=== PATIENT | male | born 1970 | race Caucasian/White ===

== ENCOUNTER → 2020-09-21 14:56 | Outpatient (BNVA) | payer BC, SELFPAY | PROVIDERS: PCP Family Medicine; Referring Provider Family Medicine; Visit Provider Internal Medicine Cardiovascular Disease ==

== ENCOUNTER → 2020-10-28 09:38 | Outpatient (REF) | payer BC, SELFPAY ==
--- NOTE | 2020-10-28 09:41 | CA_ITS ---
Transthoracic Echocardiogram Patient (Last, First, Middle): Reece Kramer, Gender: Male Date of : 1970 Age: 50 Procedure Date: 10/28/2020 Procedure Type: Transthoracic Echocardiogram Location: OP Height: 185.42 cm Weight: 104.33 kg BSA: 2.28 m2 Heart Rate: bpm BP: 122 / 72 mmHg Locum Tenens: PERLA Referring MD: Deric Marrero MD Symptoms: I48.0 - Paroxysmal atrial fibrillation Study Quality: Good ECG Rhythm: Sinus Conclusions: - Normal left ventricular size, thickness, and systolic function. - Normal right ventricular cavity size and systolic function. - There is mild dilatation of the ascending aorta. Findings Left Ventricle Normal left ventricular size, thickness, and systolic function. The visually estimated ejection fraction is between 55-60%. There is no evidence of regional wall motion abnormalities. Diastolic function is normal for age. Right Ventricle Normal right ventricular cavity size and systolic function. Atria The left atrium is normal in size. Aortic Valve Normal aortic valve structure and function. There is no aortic valve stenosis. There is no aortic valve regurgitation. Mitral Valve Normal mitral valve structure and function. There is no mitral valve regurgitation. There is no mitral valve stenosis. Pulmonic Valve The pulmonic valve is likely normal. Tricuspid Valve Normal tricuspid valve structure and function. There is trace tricuspid valve regurgitation. Normal right atrial pressure. There is no evidence of pulmonary hypertension. Great Vessels There is mild dilatation of the ascending aorta. The visualized portions of the pulmonary artery and branches are normal. Venous The inferior vena cava is normal in size and collapses greater than 50% with inspiration. Pericardium/Pleural There is no evidence of pericardial effusion. Prior Study Comparison No prior study available for comparison. Measurements 2D Linear Measurements IVSd: 1.00 0.6-0.9/0.6-1.0 cm LVIDd: 4.96 3.9-5.3/4.2-5.9 cm LVIDd Index: 2.18 2.4-3.2/2.2-3.1 cm/m2 LVIDs: 3.51 2.0-3.6 cm LVPWd: 0.84 0.7-1.1 cm Ao Root: 3.70 2.1-3.5 cm LA Diam: 3.60 2.7-3.8/3.0-4.0 cm LAIDs Index: 1.58 1.5-2.3 cm/m2 LV Mass: 199.67 67-162/88-224 g LV Mass Index: 87.58 43-95/49-115 g/m2 LVOT Diam: 2.50 3.0+(-)1.3 cm 2D Systolic Function EF 4C: 55.80 >55% EF 2C: 50.70 >55% Mitral Valve MV Pk E: 0.67 MV PK A: 0.50 MV Decel Time: 309.00 E/A: 1.40 E'Lateral: 10.60 E'Medial: 9.57 E/E' Med: 7.00 E/E' Lat: 6.30 PHT: 90.00 MVA PHT: 2.44 Decel [place]: 2.18 Aortic Valve AoV Pk William: 1.09 AoV Mn William: 0.72 AoV VTI: 0.25 AoV Pk Grad: 5.00 Aov Mn Grad: 2.00 JENNIFER Cont.VTI: 3.55 LVOT LVOT Pk William: 0.88 LVOT Mn William: 0.56 LVOT VTI: 0.18 LVOT Pk Grad: 3.00 LVOT Mn Grad: 1.00 LVOT Diam: 2.50 LVOT Area: 4.91 Diastolic Function MV Pk E: 0.67 MV Pk A: 0.50 E/A: 1.40 E'Medial: 9.57 E/E' Med: 7.00 E' Laterial: 10.60 E/E' Lat: 6.30 Right Ventricle TAPSE (mm): 28.00 TVS' William: 13.80 Tricuspid Valve TR Pk William: 1.86 TR Pk Grad: 14.00 RA Press: 3.00 RVSP: 17.00 Great Vessels Aorta Ao Root-2D: 3.70 2.0-3.7 cm Ao Asc: 3.40 2.1-3.4 cm Pulmonary Valve PV Pk William: 1.24 Peak PV Grad: 6.00 Updated in Other Vendor System with Status of Final Juan Pablo Staley MD electronically signed on 10/29/2020 9:58:16 PM with status of Final
--- NOTE | 2020-10-28 09:41 | CA_ITS ---
Acquisition Time: 2020-10-28 10:30:21 Total Exercise Time: 00:11:41 Test Indications: AFIB Medications: Protocol: [place] Max HR: 144 BPM 85% of Pred: 169 BPM Max BP: 154/058 mmHG Max Work Load: 13.4 METS Exercise stress test with exercise 11 min 41 sec of [place] protocol, with request to stop due to knee pain, without anginal symptoms, with isolated PAC and rare PVC, with normotensive response to exercise, without EKG changes meeting criteria for ischemia. Test reviewed with Dr Marrero. Referred By: Deric Marrero Overread By: HENNA HOUSER
== END ==
LOC: HO.CARD 09:38
PROVIDERS: Visit Provider Internal Medicine Cardiovascular Disease
DX: I48.0 Paroxysmal atrial fibrillation (principal); R55 Syncope and collapse
CPT/HCPCS: 93017; 93306

== ENCOUNTER → 2020-10-31 12:51 | Outpatient (REF) | payer BC, SELFPAY | LOC: HO.SL 12:51 | PROVIDERS: PCP Family Medicine; Visit Provider Internal Medicine Cardiovascular Disease | DX: I48.0 Paroxysmal atrial fibrillation (principal); R55 Syncope and collapse | CPT/HCPCS: 95806 ==

== ENCOUNTER → 2020-11-29 10:55 | Outpatient (BNVA) | payer BC, SELFPAY | PROVIDERS: PCP Family Medicine; Referring Provider Family Medicine; Visit Provider Internal Medicine Cardiovascular Disease ==

== ENCOUNTER → 2020-12-19 15:40 | Outpatient (BNVA) | payer BC, SELFPAY | PROVIDERS: PCP Family Medicine; Visit Provider Internal Medicine ==

== ENCOUNTER → 2021-02-16 15:36 | Outpatient (BNVA) | payer BC, SELFPAY | PROVIDERS: PCP Family Medicine; Visit Provider Internal Medicine ==

== ENCOUNTER → 2021-11-20 15:18 | Outpatient (BNVA) | payer BC, SELFPAY | PROVIDERS: PCP Family Medicine; Referring Provider Family Medicine; Visit Provider Internal Medicine Cardiovascular Disease | DX: I48.0 Paroxysmal atrial fibrillation (principal); R55 Syncope and collapse | CPT/HCPCS: 93005 ==

== ENCOUNTER 2022-11-27 15:16 | Outpatient (REF) | payer BC, SELFPAY ==
[2022-11-27 17:27] LABS: Hematocrit 46.3 % (42.0-52.0); Hemoglobin 15.4 g/dl (14.0-18.0); Mean Corpuscular HGB Conc 33.3 g/dl (31.0-36.0); Mean Corpuscular Hemoglobin 29.4 pg (27.0-33.0); Mean Corpuscular Volume 88.5 fL (80.0-98.0); Mean Platelet Volume 11.4 fL (9.4-12.4); Platelet Count 244 X10*3/uL (160-400); Red Blood Count 5.23 X10*6/uL (4.60-5.80); Red Cell Distribution Width 13.1 % (11.0-16.0); White Blood Count 9.2 X10*3/uL (4.8-10.8)
[2022-11-27 18:25] LABS: B Type Natriuretic Peptide 56 pg/mL (<100)
[2022-11-27 18:26] LABS: Anion Gap 9 (12-20); Blood Urea Nitrogen 8 mg/dL (9-16); Calcium 9.3 mg/dL (8.4-10.2); Carbon Dioxide 27 mmol/L (22-29); Chloride 107 mmol/L (96-108); Estimated Glomerular Filt Rate > 60; Glucose Random 79 mg/dL (60-115); Magnesium 1.8 mg/dL (1.6-2.6); Sodium 139 mmol/L (135-145)
== END 2022-11-27 15:17 | disposition home or self-care (01) ==
LOC: HO.LAB 15:16
PROVIDERS: PCP Family Medicine; Visit Provider Internal Medicine Cardiovascular Disease
DX: I48.19 Other persistent atrial fibrillation (principal)
CPT/HCPCS: 36415; 80048; 83735; 83880; 85027; 93005

== ENCOUNTER 2022-11-27 15:16 | Outpatient (AMB) | payer BC, SELFPAY ==
--- NOTE | 2022-11-27 15:24 | MHC.OFFVIS ---
Intake Vital Signs 11/27/22 15:25 Height 6 ft 1 in Weight 218 lb 4.122 oz BMI 28.8 BP 120/72 Blood Pressure Location Lt brachial Position Sitting Pulse 107 H Intake Visit Reasons: 1 YR F/U Intake Note: 1 year follow-up with ekg feeling good Property Insurance Claims Examiner Required: No Allergies No Known Allergies [No Known Allergies*] Allergy (Verified 11/20/21 15:25) Medication List - Last Reconciled 11/27/22 by Deric Marrero MD No Known Home Meds HPI HPI Comments History of Present Illness Details Reece comes for annual follow-up. He is noted to be in atrial fibrillation today. He denies any symptoms related to it. Denies any changes exercise capacity. Does even know that his heart is in atrial fibrillation. He has been under a lot of stress and is sleeping poorly due to sudden passing of his and he is currently grieving. He is currently not on any medications. His symptoms of lightheadedness and syncope have completely dissipated since increasing his fluid intake. Denies any heart failure symptoms. He denies any excessive caffeine or alcohol use. [facility] Medical History MIKA (obstructive sleep apnea) Paroxysmal atrial fibrillation Surgical History Hx of hernia repair Family History Father No problems noted. Mother Afib Social History Patient Tobacco Use Status: Former Tobacco user Review of Systems Const Denies chills, Denies fatigue, Denies fever(s), Denies frequent falls, Denies weakness, Denies weight gain and Denies weight loss ENT Denies dizziness Card Denies chest pain, Denies leg edema, Denies lightheadedness, Denies palpitations, Denies dyspnea, Denies dyspnea on exertion, Denies orthopnea and Denies other (loss of consciousness) Resp Denies cough, Denies dyspnea and Denies dyspnea on exertion GI Denies hematochezia and Denies change in stool character Musc Denies abnormal gait, Denies muscle weakness, Denies numbness, Denies radiating pain into limb and Denies tingling Neuro Denies abnormal gait, Denies dizziness, Denies frequent falls, Denies numbness, Denies tingling and Denies weakness Endo Denies fatigue and Denies palpitations Physical Exam Vital Signs: Last Vital Signs Pulse 107 H 11/27/22 15:25 BP 120/72 11/27/22 15:25 BMI result Body Mass Index 28.8 Const General: cooperative, comfortable, no acute distress, alert, awake and Physically active Nutritional Appearance: overweight Orientation/consciousness: patient oriented x3 Limitations: no limitations HEENT Head: Yes normocephalic and Yes atraumatic Neck Neck: Yes trachea midline, Yes supple and Yes no JVD Resp Effort & Inspection: normal respiratory effort Auscultation: clear to auscultation bilaterally Cardio Jugular venous distension: no JVD Palpation: normal PMI Rate: tachycardic Rhythm: abnormal rhythm irregularly irregular Heart sounds: S1 normal heart sound present, S2 normal heart sound present, no click, no gallops, no murmurs and no rubs GI Auscultation: normal bowel sounds Skin General skin exam: no rashes or lesions noted Neuro General: patient oriented x3 and no focal motor deficits Extrem General: Yes no clubbing, cyanosis or edema Psych Appearance: grossly normal Office Procedures EKG Details: EKG shows atrial fibrillation with rapid ventricular response with rightward axis [id number], Complete Assessment & Plan Assessment & Plan (1) Persistent atrial fibrillation: Code(s): I48.19 - Other persistent atrial fibrillation Plan: Patient with recurrent atrial fibrillation without any obvious symptoms or signs of congestive heart failure. This is most likely induced by his recent highly stressful situation and lack of sleep. Importance of regular sleeping was noted. We discussed about management of atrial fibrillation given his age to pursue rhythm control approach in the long run. We discussed that not knowing how long he has been atrial fibrillation the most prudent approach would be to start oral anticoagulation therapy with Xarelto 20 mg daily and pursue synchronized cardioversion 4 weeks time. Other possibilities to pursue CAITLIN guided cardioversion sooner. He elected to pursue wait strategy. Will also start him on Toprol-XL 50 mg daily. Stress mitigation strategies pursued. We discussed about synchronized cardioversion including risk, benefits, alternatives. Understands agrees. Follow-up echocardiogram after cardioversion. Also discussed about pursuing monitoring with smart phone based EKG device. Will obtain lab work today. Will follow up in the clinic in 2 months time, sooner p.r.n.. Thank you for allowing me to partake in his care Orders: Orders Basic Metabolic Panel Today I48.19 - Other persistent atrial fibrillation Magnesium Today I48.19 - Other persistent atrial fibrillation Complete Blood Count no Diff Today I48.19 - Other persistent atrial fibrillation CA echo transthoracic complete 5 Weeks I48.19 - Other persistent atrial fibrillation B Type Natriuretic Peptide Today I48.19 - Other persistent atrial fibrillation Medications: New rivaroxaban (Xarelto) must administer with evening meal 20 mg PO DAILY 30 tabs 2RF metoprolol succinate ER (Toprol XL) 50 mg PO DAILY 30 tabs 2RF Coding Level of Care Code Est Pt Level 4 (42036) Diagnoses Persistent atrial fibrillation I48.19 CPT Codes EKG - CPT: 28408-Hvsmqvvlyglpogbdl, Complete ([id number])
[2022-11-27 15:25] VITALS: BP 120/72; PULSE 107; BMI 28.8
== END 2022-11-27 15:55 | disposition home or self-care (01) ==
PROVIDERS: PCP Family Medicine; Visit Provider Internal Medicine Cardiovascular Disease
DX: I48.19 Other persistent atrial fibrillation (principal)
CPT/HCPCS: 93010; 99214

== ENCOUNTER 2022-12-24 15:29 | Outpatient (AMB) | payer BC, SELFPAY ==
--- NOTE | 2022-12-24 15:58 | AM.OFFVISNUR ---
Intake Intake Visit Reasons: ekg Intake Note: Pt here for EKG. Has CVR scheduled this week but pulse has been normal at home lately per his siter in /[facility]. Financial Underwriter Required: No Accompanied by: Self / Same As Patient Allergies No Known Allergies [No Known Allergies*] Allergy (Verified 11/20/21 15:25) Followed by:: Dr. Marrero Nursing Note EKG completed - able to capture small run of paroxysmal afib and the rest was NSR 71 bpm. EKG to Per Dr. Marrero for review - continue Xarelto and Metoprolol, Cx CVR, order 3 day Holter. Rx refills sent to [facility]. Pt verbalizes understanding and agrees to plan. Karma to cancel CVR. Office Procedures EKG [id number], Complete Coding Level of Care Code Est Pt Level 1 (49857) CPT Codes EKG - CPT: 44450-Msxbicyhlhunttbok, Complete ([id number]) Time Spent (min) 20 Comment EKG, Medication Reconciliation, Documentation, Education
== END 2022-12-24 15:57 | disposition home or self-care (01) ==
PROVIDERS: PCP Family Medicine; Visit Provider Nurse Practitioner Family
DX: I48.0 Paroxysmal atrial fibrillation (principal)
CPT/HCPCS: 93010

== ENCOUNTER → 2022-12-24 15:29 | Outpatient (BNVA) | payer BC, SELFPAY | PROVIDERS: PCP Family Medicine; Visit Provider Nurse Practitioner Family | DX: I48.0 Paroxysmal atrial fibrillation (principal); Z79.01 Long term (current) use of anticoagulants; Z79.899 Other long term (current) drug therapy | CPT/HCPCS: 93005 ==

== ENCOUNTER → 2022-12-31 15:09 | Outpatient (REF) | payer BC, SELFPAY ==
--- NOTE | 2022-12-31 15:11 | CA_ITS ---
Transthoracic Echocardiogram Patient (Last, First, Middle): Reece Kramer, Gender: Male Date of : 1970 Age: 52 Procedure Date: 12/31/2022 Procedure Type: Transthoracic Echocardiogram Location: OP Height: 182.88 cm Weight: 99.79 kg BSA: 2.22 m2 Heart Rate: 56 bpm BP: 124 / 70 mmHg Research Psychologist: Referring MD: Deric Marrero MD Symptoms: I48.19 - Other persistent atrial fibrillation Study Quality: Adequate ECG Rhythm: Sinus Conclusions: - The left ventricular systolic function is low normal. The visually estimated ejection fraction is between 50-55%. - The basal inferior segment is hypokinetic. - Mildly increased right ventricular cavity size. - No obvious valvular pathology seen on this study. Findings Left Ventricle Normal left ventricular cavity size. There is normal left ventricular wall thickness. The left ventricular systolic function is low normal. The visually estimated ejection fraction is between 50-55%. There is evidence of regional wall motion abnormalities. Diastolic function is normal for age. Wall Motion Rest Echo Findings The basal inferior segment is hypokinetic. Right Ventricle Mildly increased right ventricular cavity size. There is normal right ventricular systolic function. Aortic Valve There is a normal trileaflet aortic valve. There is no aortic valve stenosis. There is no aortic valve regurgitation. Mitral Valve The mitral valve appears normal. There is trace mitral valve regurgitation. There is no mitral valve stenosis. Pulmonic Valve The pulmonic valve is likely normal. Tricuspid Valve Normal tricuspid valve structure. There is no tricuspid valve regurgitation. Tricuspid regurgitation envelope is inadequate for calculation of right ventricular systolic pressure. Great Vessels The asc aorta is normal in size. Venous The inferior vena cava is normal in size and collapses less than 50% with inspiration. Pericardium/Pleural There is no evidence of pericardial effusion. Prior Study Comparison Changes noted compared to prior study dated: 10/28/2020. See comment on wall motion. Recommendations, Care & Conclusions No obvious valvular pathology seen on this study. Measurements 2D Linear Measurements IVSd: 0.85 0.6-0.9/0.6-1.0 cm LVIDd: 5.15 3.9-5.3/4.2-5.9 cm LVIDd Index: 2.32 2.4-3.2/2.2-3.1 cm/m2 LVIDs: 3.78 2.0-3.6 cm LVPWd: 0.83 0.7-1.1 cm Ao Root: 3.70 2.1-3.5 cm LA Diam: 3.80 2.7-3.8/3.0-4.0 cm LAIDs Index: 1.71 1.5-2.3 cm/m2 LV Mass: 189.16 67-162/88-224 g LV Mass Index: 85.21 43-95/49-115 g/m2 LVOT Diam: 2.60 3.0+(-)1.3 cm 2D Systolic Function EF 4C: 55.60 >55% EF 2C: 57.90 >55% EF BiP: 57.60 >55% Mitral Valve MV Pk E: 0.80 MV PK A: 0.47 MV Decel Time: 223.00 E/A: 1.70 E'Lateral: 13.20 E'Medial: 11.40 E/E' Med: 7.00 E/E' Lat: 6.10 PHT: 65.00 MVA PHT: 3.38 Decel [place]: 3.59 Aortic Valve AoV Pk William: 1.04 AoV Mn William: 0.73 AoV VTI: 0.28 AoV Pk Grad: 4.00 Aov Mn Grad: 2.00 JENNIFER Cont.VTI: 3.13 LVOT LVOT Pk William: 0.63 LVOT Mn William: 0.38 LVOT VTI: 0.16 LVOT Pk Grad: 2.00 LVOT Mn Grad: 1.00 LVOT Diam: 2.60 LVOT Area: 5.31 Diastolic Function MV Pk E: 0.80 MV Pk A: 0.47 E/A: 1.70 E'Medial: 11.40 E/E' Med: 7.00 E' Laterial: 13.20 E/E' Lat: 6.10 Right Ventricle TAPSE (mm): 31.00 TVS' William: 14.00 Tricuspid Valve TR Pk William: 2.39 TR Pk Grad: 23.00 RA Press: 8.00 Great Vessels Aorta Ao Root-2D: 3.70 2.0-3.7 cm Ao Asc: 3.50 2.1-3.4 cm Pulmonary Valve PV Pk William: 1.06 Peak PV Grad: 4.00 Updated in Other Vendor System with Status of Final Jose Sanchez MD electronically signed on 01/01/2023 9:20:37 AM with status of Final
== END ==
LOC: HO.CARD 15:09
PROVIDERS: PCP Family Medicine; Visit Provider Internal Medicine Cardiovascular Disease
DX: I48.19 Other persistent atrial fibrillation (principal)
CPT/HCPCS: 93306

== ENCOUNTER → 2022-12-31 15:11 | Outpatient (BNV) | payer BC, SELFPAY | PROVIDERS: PCP Family Medicine; Visit Provider Internal Medicine | DX: I48.19 Other persistent atrial fibrillation (principal) | CPT/HCPCS: 93306 ==

== ENCOUNTER → 2023-01-11 14:50 | Outpatient (REF) | payer BC, SELFPAY ==
--- NOTE | 2023-01-11 14:54 | HM_ITS ---
Conclusion: 1. Patient was monitored for total period of 2 days 2. Baseline was normal sinus rhythm with average heart of 68 beats per minute 3. Intermittent episodes of atrial fibrillation noted with total burden of 4.3% with longest episode lasting 2 hours and 5 minutes with the fastest heart rate of 145 beats per minute 4. No significant pauses noted 5. Frequent PACs noted with total burden of about 4% 6. No patient reported events MTDD
== END ==
LOC: HO.CARD 14:50
PROVIDERS: PCP Family Medicine; Visit Provider Internal Medicine Cardiovascular Disease
DX: I48.19 Other persistent atrial fibrillation (principal)
CPT/HCPCS: 93225

== ENCOUNTER → 2023-01-11 14:54 | Outpatient (BNV) | payer BC, SELFPAY | PROVIDERS: PCP Family Medicine; Visit Provider Internal Medicine Cardiovascular Disease | DX: I48.19 Other persistent atrial fibrillation (principal) | CPT/HCPCS: 93227 ==

== ENCOUNTER 2023-03-05 14:55 | Outpatient (AMB) | payer BC, SELFPAY ==
--- NOTE | 2023-03-05 15:02 | MHC.OFFVIS ---
Intake Vital Signs 03/05/23 15:03 Height 6 ft 1 in Weight 224 lb 13.944 oz BMI 29.7 BP 120/78 Blood Pressure Location Lt brachial Position Sitting Pulse 68 Intake Visit Reasons: 2 mth f/up afib Intake Note: 2 month with ekg dx afib Industrial Tech Instructor Required: No Allergies No Known Allergies [No Known Allergies*] Allergy (Verified 11/20/21 15:25) Medication List - Last Reconciled 03/05/23 by Deric Marrero MD metoprolol succinate ER (Toprol XL) 50 mg PO DAILY 90 days rivaroxaban (Xarelto) 20 mg PO DAILY 90 days HPI HPI Comments History of Present Illness Details Reece comes for follow-up. He has been overall feeling well. He says sometimes he thinks that he might have atrial fibrillation feels palpitation although is not entirely certain about it. He still gets lightheaded occasionally when he gets up suddenly. However he has not had any syncopal episode. Denies any bleeding issues or neurologic events. No other exertional symptoms of heart failure symptoms. Comes for follow-up. Holter monitor done showed intermittent episode of atrial fibrillation with total burden of 4.3% [facility] Medical History (Updated 03/05/23 @ 15:34 by Deric Marrero MD) Persistent atrial fibrillation Syncope Palpitations MIKA (obstructive sleep apnea) Paroxysmal atrial fibrillation Surgical History Hx of hernia repair Family History Father No problems noted. Mother Afib Social History Patient Tobacco Use Status: Former Tobacco user Review of Systems Const Denies chills, Denies fatigue, Denies fever(s), Denies frequent falls, Denies weakness, Denies weight gain and Denies weight loss ENT Denies dizziness Card Denies chest pain, Denies leg edema, Denies lightheadedness, Denies palpitations, Denies dyspnea, Denies dyspnea on exertion, Denies orthopnea and Denies other (loss of consciousness) Resp Denies cough, Denies dyspnea and Denies dyspnea on exertion GI Denies hematochezia and Denies change in stool character Musc Denies abnormal gait, Denies muscle weakness, Denies numbness, Denies radiating pain into limb and Denies tingling Neuro Denies abnormal gait, Denies dizziness, Denies frequent falls, Denies numbness, Denies tingling and Denies weakness Endo Denies fatigue and Denies palpitations Physical Exam Vital Signs: Last Vital Signs Pulse 68 03/05/23 15:03 BP 120/78 03/05/23 15:03 BMI result Body Mass Index 29.7 Const General: cooperative, comfortable, no acute distress, alert, awake and Physically active Nutritional Appearance: overweight Orientation/consciousness: patient oriented x3 Limitations: no limitations HEENT Head: Yes normocephalic and Yes atraumatic Neck Neck: Yes trachea midline, Yes supple and Yes no JVD Resp Effort & Inspection: normal respiratory effort Auscultation: clear to auscultation bilaterally Cardio Jugular venous distension: no JVD Palpation: normal PMI Rate: regular rate Rhythm: abnormal rhythm with ectopic beats Heart sounds: S1 normal heart sound present, S2 normal heart sound present, no click, no gallops, no murmurs and no rubs GI Auscultation: normal bowel sounds Skin General skin exam: no rashes or lesions noted Neuro General: patient oriented x3 and no focal motor deficits Extrem General: Yes no clubbing, cyanosis or edema Psych Appearance: grossly normal Office Procedures EKG Details: EKG shows normal sinus rhythm with PACs at 68 beats per minute [id number], Complete Assessment & Plan Assessment & Plan (1) Paroxysmal atrial fibrillation: Code(s): I48.0 - Paroxysmal atrial fibrillation Plan: Paroxysmal atrial fibrillation without any obvious symptoms at this point time. [place] is much improved on metoprolol therapy. There is no current indication for continuing oral anticoagulation therapy as is CHADSVASc score is 0. Continue metoprolol therapy. Avoidance of stimulants such as caffeine and alcohol as well as [id number] medications were discussed with him. Advised to self monitor for symptoms. If he has persistent symptoms for greater than 24 hours advised to call my office and may require further treatment options with antiarrhythmic drugs. Continue participate in regular physical activity as tolerated. (2) Syncope: Code(s): R55 - Syncope and collapse Plan: Prior history of syncope which is suspected to be vasovagal. Has done well with increase water in solute intake. Advised to continue the same. Importance of doing so especially in heart weather was discussed with him. He understands and agrees. Continue monitor blood pressure at home. Follow up in the clinic in 6 months time, sooner p.r.n.. Thank you for allowing me to partake in his care Medications: Discontinued rivaroxaban (Xarelto) must administer with evening meal Discontinued Reason: Change Referral Type 20 mg PO DAILY 90 days 90 tabs 3RF Coding Level of Care Code Est Pt Level 4 (98044) Diagnoses Paroxysmal atrial fibrillation I48.0 Syncope R55 CPT Codes EKG - CPT: 73662-Uvoobfjznsjtmieey, Complete ([id number])
[2023-03-05 15:03] VITALS: BP 120/78; PULSE 68; BMI 29.7
== END 2023-03-05 15:37 | disposition home or self-care (01) ==
PROVIDERS: PCP Family Medicine; Visit Provider Internal Medicine Cardiovascular Disease
DX: I48.0 Paroxysmal atrial fibrillation (principal); R55 Syncope and collapse
CPT/HCPCS: 93010; 99214

== ENCOUNTER → 2023-03-05 14:55 | Outpatient (BNVA) | payer BC, SELFPAY | PROVIDERS: PCP Family Medicine; Visit Provider Internal Medicine Cardiovascular Disease | DX: I48.0 Paroxysmal atrial fibrillation (principal); R55 Syncope and collapse; Z79.899 Other long term (current) drug therapy | CPT/HCPCS: 93005 ==

== ENCOUNTER 2023-09-10 15:09 | Outpatient (AMB) | payer BC, SELFPAY ==
--- NOTE | 2023-09-10 15:12 | MHC.OFFVIS ---
Vital Signs 09/10/23 15:13 Height 6 ft 1 in Weight 222 lb 10.67 oz BMI 29.4 BP 120/70 Blood Pressure Location Lt brachial Position Sitting Pulse 96 Intake Visit Reasons: 6 mth f/up Intake Note: 6 month follow-up feeling good Order Taker Required: No Allergies No Known Allergies [No Known Allergies*] Allergy (Verified 11/20/21 15:25) Medication List - Last Reconciled 09/10/23 by Deric Marrero MD metoprolol succinate ER (Toprol XL) 50 mg PO DAILY 90 days HPI Comments Details: Reece comes for follow-up. Currently when he came to the office he was not having symptoms. Although because the heart where they said occasionally still gets lightheaded. He has been pushing a lot of fluid intake and also drinks electrolyte solution once a day. Not had actual syncopal episode. Denies any irregular heartbeat or prolonged palpitations or fast heart rate. Denies any heart failure symptoms. No orthopnea, PND, leg edema. No change in his exercise capacity. Denies any exertional chest pain. [facility] Medical History (Updated 09/10/23 @ 15:51 by Deric Marrero MD) Persistent atrial fibrillation Syncope Palpitations MIKA (obstructive sleep apnea) Paroxysmal atrial fibrillation Surgical History Hx of hernia repair Family History Father No problems noted. Mother Afib Social History Patient Tobacco Use Status: Former Tobacco user Review of Systems Const Denies chills, Denies fatigue, Denies fever(s), Denies frequent falls, Denies weakness, Denies weight gain and Denies weight loss ENT Denies dizziness Card Denies chest pain, Denies leg edema, Denies lightheadedness, Denies palpitations, Denies dyspnea, Denies dyspnea on exertion, Denies orthopnea and Denies other (loss of consciousness) Resp Denies cough, Denies dyspnea and Denies dyspnea on exertion GI Denies hematochezia and Denies change in stool character Musc Denies abnormal gait, Denies muscle weakness, Denies numbness, Denies radiating pain into limb and Denies tingling Neuro Denies abnormal gait, Denies dizziness, Denies frequent falls, Denies numbness, Denies tingling and Denies weakness Endo Denies fatigue and Denies palpitations Physical Exam Vital Signs: Last Vital Signs Pulse 96 09/10/23 15:13 BP 120/70 09/10/23 15:13 BMI result Body Mass Index 29.4 Const General: cooperative, comfortable, no acute distress, alert, awake and Physically active Nutritional Appearance: overweight Orientation/consciousness: patient oriented x3 Limitations: no limitations HEENT Head: Yes normocephalic and Yes atraumatic Neck Neck: Yes trachea midline, Yes supple and Yes no JVD Resp Effort & Inspection: normal respiratory effort Auscultation: clear to auscultation bilaterally Cardio Jugular venous distension: no JVD Palpation: normal PMI Rhythm: abnormal rhythm irregularly irregular and with ectopic beats Heart sounds: S1 normal heart sound present, S2 normal heart sound present, no click, no gallops, no murmurs and no rubs GI Auscultation: normal bowel sounds Skin General skin exam: no rashes or lesions noted Neuro General: patient oriented x3 and no focal motor deficits Extrem General: Yes no clubbing, cyanosis or edema Psych Appearance: grossly normal Office Procedures EKG Details: EKG shows atrial fibrillation with rate of 89 beats per minute [id number], Complete Assessment & Plan Assessment & Plan (1) Persistent atrial fibrillation: Code(s): I48.19 - Other persistent atrial fibrillation Category: Medical Plan: Persistent atrial fibrillation in this middle-aged man without any obvious symptoms or signs of cardiac decompensation. Although given his age we need to pursue rhythm control approach. Duration of atrial fibrillation is unknown as patient does not have any significant symptoms. Advised him to invest in a smart phone based EKG device. Will start him on Xarelto 20 mg daily for oral anticoagulation. Bring him back for EKG in 4 weeks. If he is still remains in persistent atrial fibrillation with schedule him for synchronized cardioversion and most likely require antiarrhythmic drug therapy to maintain rhythm. Continue treatment for sleep apnea. Continue aggressive hydration for his tendency for vasovagal syncope. He understands management well. Continue metoprolol therapy for now for rate control. Will follow up in 4 weeks for EKG. Thank you for allowing me to partake in his care Medications: New rivaroxaban (Xarelto) must administer with evening meal 20 mg PO QPM 30 tabs 2RF Coding Level of Care Code Est Pt Level 4 (03251) Diagnoses Persistent atrial fibrillation I48.19 CPT Codes EKG - CPT: 94871-Iyvsnvkaoiyexealp, Complete ([id number])
[2023-09-10 15:13] VITALS: BP 120/70; PULSE 96; BMI 29.4
== END 2023-09-10 15:48 | disposition home or self-care (01) ==
PROVIDERS: PCP Family Medicine; Visit Provider Internal Medicine Cardiovascular Disease
DX: I48.19 Other persistent atrial fibrillation (principal)
CPT/HCPCS: 93010; 99214

== ENCOUNTER → 2023-09-10 15:09 | Outpatient (BNVA) | payer BC, SELFPAY | PROVIDERS: PCP Family Medicine; Visit Provider Internal Medicine Cardiovascular Disease | DX: I48.19 Other persistent atrial fibrillation (principal); Z79.899 Other long term (current) drug therapy | CPT/HCPCS: 93005 ==

== ENCOUNTER → 2023-10-08 15:45 | Outpatient (BNVA) | payer BC, SELFPAY | PROVIDERS: PCP Family Medicine; Visit Provider Internal Medicine Cardiovascular Disease ==

== ENCOUNTER 2024-05-14 14:37 | Outpatient (AMB) | payer BC, SELFPAY ==
[2024-05-14 14:40] VITALS: BP 120/80; PULSE 84
--- NOTE | 2024-05-14 14:40 | A.OFFVIS_ITS ---
Vital Signs 05/14/24 14:40 Height 6 ft 1 in Weight 227 lb 1.218 oz BMI 30.0 BP 120/80 Blood Pressure Location Lt brachial Position Sitting Pulse 84 Intake Visit Reasons: f/u with ekg Intake Note: Follow-up dx afib with ekg feeling good Block Press Operator Required: No Allergies No Known Allergies [No Known Allergies*] Allergy (Verified 11/20/21 15:25) Medication List - Last Reconciled 05/14/24 by Deric Marrero MD metoprolol succinate ER (Toprol XL) 50 mg PO DAILY 90 days rivaroxaban (Xarelto) 20 mg PO QPM HPI Comments Details: Reece comes for follow-up. He was noted to be in atrial fibrillation reduce primary care physician's office and has been shown to be in persistent atrial fibrillation. He said when he was drinking a lot of coffee he was feels symptoms of palpitations but he was since then cut down his caffeine intake as as a palpitation improved. He denies any significant other complaints. Denies any syncopal episodes. Denies any worsening shortness of breath, orthopnea, PND. Denies any exertional chest pain. Has been taking his oral anticoagulation therapy with Xarelto. [facility] Medical History Persistent atrial fibrillation Syncope Palpitations MIKA (obstructive sleep apnea) Paroxysmal atrial fibrillation Surgical History Hx of hernia repair Family History Father No problems noted. Mother Afib Social History Patient Tobacco Use Status: Former Tobacco user Review of Systems Const Denies chills, Denies fatigue, Denies fever(s), Denies frequent falls, Denies weakness, Denies weight gain and Denies weight loss ENT Denies dizziness Card Denies chest pain, Denies leg edema, Denies lightheadedness, Reports palpitations, Denies dyspnea, Denies dyspnea on exertion, Denies orthopnea and Denies other (loss of consciousness) Resp Denies cough, Denies dyspnea and Denies dyspnea on exertion GI Denies hematochezia and Denies change in stool character Musc Denies abnormal gait, Denies muscle weakness, Denies numbness, Denies radiating pain into limb and Denies tingling Neuro Denies abnormal gait, Denies dizziness, Denies frequent falls, Denies numbness, Denies tingling and Denies weakness Endo Denies fatigue and Reports palpitations Physical Exam Vital Signs: Last Vital Signs Pulse 84 05/14/24 14:40 BP 120/80 05/14/24 14:40 BMI result Body Mass Index 30.0 Office Procedures EKG Details: EKG shows atrial fibrillation with rightward axis 46327-[id number], Complete Assessment & Plan Assessment & Plan (1) Persistent atrial fibrillation: Code(s): I48.19 - Other persistent atrial fibrillation Category: Medical Plan: Persistent atrial fibrillation in this middle-aged man without any obvious signs of cardiac decompensation. However given his age and as per the data I would pursue rhythm control approach and this was discussed with him. At this point time given that he has no significant symptoms will pursue rhythm control with antiarrhythmic drug. Will start him on Multaq 400 mg b.i.d. and pursue synchronized cardioversion next few days. Reduce metoprolol to 25 mg daily. Continue Xarelto for oral anticoagulation therapy. Advised to avoid stimulants especially caffeine in excess. Risks, benefits, alternatives to synchronized cardioversion were discussed with him. He understands agrees. Follow up in the clinic in 4 weeks time, sooner p.r.n.. Thank you for allowing me to partake in his care Orders: Orders Cardioversion 6 Days I48.19 - Other persistent atrial fibrillation Medications: New dronedarone (Multaq) must administer with a meal/food 400 mg PO BID 60 tabs 3RF Changed From metoprolol succinate ER (Toprol XL) 50 mg PO DAILY 90 days 90 tabs 3RF To metoprolol succinate ER (Toprol XL) 25 mg (1/2 x 50 mg) PO DAILY 45 tabs 3RF 90 days Coding Level of Care Code Est Pt Level 4 (44660) Complex EM visit Add On G2211 Diagnoses Persistent atrial fibrillation I48.19 CPT Codes EKG - CPT: 72008-[id number], Complete ([id number])
== END 2024-05-14 15:11 | disposition home or self-care (01) ==
LOC: HO.HCS 14:38
PROVIDERS: PCP Family Medicine; Visit Provider Internal Medicine Cardiovascular Disease
DX: I48.19 Other persistent atrial fibrillation (principal)
CPT/HCPCS: 93010; 99214

== ENCOUNTER → 2024-05-14 14:37 | Outpatient (BNVA) | payer BC, SELFPAY | PROVIDERS: PCP Family Medicine; Visit Provider Internal Medicine Cardiovascular Disease | DX: I48.19 Other persistent atrial fibrillation (principal); Z79.01 Long term (current) use of anticoagulants; Z79.899 Other long term (current) drug therapy | CPT/HCPCS: 93005 ==

== ENCOUNTER 2024-05-20 11:13 | Day surgery (SDC) | payer BC, SELFPAY ==
--- NOTE | 2024-05-19 08:53 | P.CONAN_ITS ---
Documented by User: Ariana Paredes NP 05/19/24 08:53 HPI - Anesthesia Eval Consult details Narrative: 53yo M for Cardioversion Xarelto for afib PMFSH Active Problems Active Problems: All Active Problems Persistent atrial fibrillation (Acute) Syncope (Acute) Palpitations (Acute) MIKA (obstructive sleep apnea) (Acute) Paroxysmal atrial fibrillation (Acute) Past Medical History Medical History Persistent atrial fibrillation Syncope Palpitations MIKA (obstructive sleep apnea) Paroxysmal atrial fibrillation Family History Family History Father No problems noted. Mother Afib Surgical History Surgical History Hx of hernia repair Social History Social History Are you a primary patient centered care specialist to a significant other at home: No Do you presently have visiting nurse or other home services: No Patient Tobacco Use Status: Current everyday Tobacco user Tobacco use type: Smokeless Tobacco Use of substances other than those prescribed or required for medical reasons: No Have you been hit, kicked, punched, or otherwise hurt by someone within the past year? If so, by whom?: No Are you DNR?: No Advance Directives: No Advance Directives Information Provided: Yes Recently lost weight without trying: No Nutrition Risks: No Nutritional Risk Poor oral hygiene: No Meds Allergies Allergy/AdvReac Type Severity Reaction Status Date / Time No Known Allergies Allergy Verified 05/20/24 11:51 [No Known Allergies*] Assessment and Plan Assessment Anesthesia Assessment: Chart Reviewed Documented by User: Magaly Grayson MD 05/20/24 13:43 HPI - Anesthesia Eval Consult details Narrative: 53yo M for Cardioversion Xarelto for afib. Last dose this morning PMFSH Active Problems Active Problems: All Active Problems Persistent atrial fibrillation (Acute) Syncope (Acute) Palpitations (Acute) MIKA (obstructive sleep apnea). Mild. Positional. Symptoms with laying supine. Sleeps on stomach Paroxysmal atrial fibrillation (Acute) Past Medical History Medical History Persistent atrial fibrillation Syncope Palpitations MIKA (obstructive sleep apnea) Paroxysmal atrial fibrillation Family History Family History Father No problems noted. Mother Afib Family history of problems with anesthesia: No Surgical History Surgical History Hx of hernia repair History of Problems with Anesthesia: No Social History Social History Are you a primary patient centered care specialist to a significant other at home: No Do you presently have visiting nurse or other home services: No Patient Tobacco Use Status: Current everyday Tobacco user Tobacco use type: Smokeless Tobacco Use of substances other than those prescribed or required for medical reasons: No Have you been hit, kicked, punched, or otherwise hurt by someone within the past year? If so, by whom?: No Are you DNR?: No Advance Directives: No Advance Directives Information Provided: Yes Recently lost weight without trying: No Nutrition Risks: No Nutritional Risk Poor oral hygiene: No Meds Allergies Allergy/AdvReac Type Severity Reaction Status Date / Time No Known Allergies Allergy Verified 05/20/24 11:51 [No Known Allergies*] Exam Height,Weight and Vital Signs: Height 6 ft Weight 101 kg Vital Signs Temp Pulse Resp BP Pulse Ox O2 Del Method 05/20/24 12:08 98.0 F 70 12 97/69 100 Room Air Airway Mallampati Class: III TM Dist: >3cm Neck ROM: Full Loose/Missing/Broken Teeth: No Heart: Irregularly irregular Lungs: CTAB Assessment and Plan Assessment Anesthesia Assessment: Anesthesia Plan Discussed and Chart Reviewed Final Anesthetic Review Family History of Problems with Anesthesia: No History of Problems with Anesthesia: No NPO: Yes ASA Class: III Final Preanesthetic Review: No Changes in Pt Med Stat, Meds/Allgs Chart Reviewed, Consent Obtained/Reviewed and Anes Risks/Benef Reviewed Patient Risk: Intermediate Procedure Risk: Low Assessment/Block/Sedation in SS: Assess/Block/Sedation-SS Anesthetic Plan Anesthetic Plan: TIVA Disposition: Standard PACU
[2024-05-20 12:08] VITALS: BP 97/69; PULSE 70; RESP 12; TEMP 36.7; O2SAT 100; BMI 30.5
--- NOTE | 2024-05-20 12:11 | MHC.SHP ---
Pre-Procedural Eval Section A - 24 Hr Update-Section A only Date of Service: 05/20/24 The patient is an INPATIENT: No Changes since office visit: Yes Changes in Medication and Yes Patient answered all questions; No Cold of Flu in the past 2 weeks and No New Medical Problems The patient has been examined within 24 hours of the surgical procedure. The History & Physical has been completed within 30 days and I have reviewed it.: Yes Section B - Complete if H&P > 30 days Chief Complaint: Other persistent atrial fibrillation Allergies: Allergies Allergy/AdvReac Type Severity Reaction Status Date / Time No Known Allergies Allergy Verified 05/20/24 11:51 [No Known Allergies*] Plan I have reviewed the history and physical and performed a pertinent physical examination on my patient. No changes have occurred unless specified. Time Spent With Patient Time: Total time managing care of this patient today ____ minutes.
--- NOTE | 2024-05-20 12:16 | ECG_ITS ---
Test Reason : ?Cardioversion Blood Pressure : */* mmHG Vent. Rate : 64 BPM Atrial Rate : * BPM P-R Int : * ms QRS Dur : 90 ms QT Int : 404 ms P-R-T Axes : * 83 45 degrees QTcB Int : 416 ms Atrial fibrillation Abnormal ECG No previous ECGs available Referred By: Deric Marrero Electronically Signed By: Juan Pablo Staley
[2024-05-20 12:27] VITALS: BMI 30.2
[2024-05-20] MEDS: Lactated Ringers 1,000 ML 100 ML IVCONT (12:52)
--- NOTE | 2024-05-20 13:33 | ECG_ITS ---
Test Reason : post op Blood Pressure : */* mmHG Vent. Rate : 57 BPM Atrial Rate : 57 BPM P-R Int : 170 ms QRS Dur : 94 ms QT Int : 432 ms P-R-T Axes : 38 86 44 degrees QTcB Int : 420 ms Sinus bradycardia Possible Left atrial enlargement Borderline ECG When compared with ECG of 20-May-2024 12:15, Sinus rhythm has replaced Atrial fibrillation Referred By: Deric Marrero Electronically Signed By: Juan Pablo Staley
[2024-05-20 13:49] VITALS: BP 102/65; PULSE 62; RESP 12; TEMP 36.5; O2SAT 100
--- NOTE | 2024-05-20 13:54 | HO.CARDIVERS ---
Cardioversion Procedure Note Cardioversion Date of Procedure: 05/20/2024 Ordering Provider: Bubba Marrero Performing Provider: Bubba Marrero Indication for Procedure: Recurrent persistent atrial fibrillation Pre-Op Diagnosis: Same Post-Op Diagnosis: Normal sinus rhythm Performed with Transesophageal Echo: No History: See my note Consent: Verbal and Written consent was obtained from the patient before starting the procedure after confirming oral anticoagulation and antiarrhythmic drug use. The patient was made aware of the risk of synchronized cardioversion including benefits and alternatives Procedure: After consent obtained, cardioversion pads were attached in anteroposterior configuration and the patient was sedated by the anesthesia team. Once adequate sedation achieved, patient was delivered 200 joules of biphasic synchronized energy in anteroposterior configuration. Complications: None Impression: Successful conversion to sinus rhythm Recommendations: 1. 12 lead EKG 2. Continue Multaq and oral anticoagulation use 3. Follow up in the office
[2024-05-20 14:04] VITALS: BP 106/59; PULSE 60; RESP 14; O2SAT 99
[2024-05-20 14:19] VITALS: BP 106/70; PULSE 61; RESP 16; TEMP 36.5; O2SAT 100
== END 2024-05-20 14:37 | disposition home or self-care (01) ==
PROVIDERS: PCP Family Medicine; Visit Provider Internal Medicine Cardiovascular Disease
PROC: 5A2204Z Restoration of Cardiac Rhythm, Single (ICD-10-PCS; principal; 2024-05-20 13:00)
DX: I48.19 Other persistent atrial fibrillation (principal); Z79.01 Long term (current) use of anticoagulants; I48.0 Paroxysmal atrial fibrillation; R00.2 Palpitations; R55 Syncope and collapse; G47.33 Obstructive sleep apnea (adult) (pediatric); Z87.891 Personal history of nicotine dependence
CPT/HCPCS: 92960; 93005; J2003; J2704

== ENCOUNTER → 2024-05-20 11:13 | Outpatient (BNV) | payer BC, SELFPAY | PROVIDERS: PCP Family Medicine; Visit Provider Internal Medicine Cardiovascular Disease | DX: I48.19 Other persistent atrial fibrillation (principal) | CPT/HCPCS: 92960; 93010 ==